=== PATIENT | female | born 1985 | race African-American/Black ===

== ENCOUNTER 2017-01-16 22:10 | Emergency (ER) | payer OTHER ==
[~2017-01-16] VITALS: Ht 167.6 cm; Wt 81.7 kg
[~2017-01-16 22:10] MED LIST: AUGMENTIN 875875 MG PO; NORCO 5-325 TA1 EACH PO
[2017-01-16 22:13] VITALS: BP 152/74
[2017-01-16] MEDS ORDERED: NAPROSYN500 MG PO (22:53)
== END 2017-01-16 22:55 | disposition home or self-care (01) ==
LOC: ER 22:10
DX: M25.462 Effusion, left knee (principal); F12.10 Cannabis abuse, uncomplicated; Z88.6 Allergy status to analgesic agent

== ENCOUNTER 2019-01-31 04:55 | Emergency (ER) | payer OTHER ==
[~2019-01-31] VITALS: Ht 165.1 cm; Wt 77.1 kg
[~2019-01-31 04:55] MED LIST changes: +NAPROSYN500 MG PO
[2019-01-31 05:14] LABS: URINE BILIRUBIN NEGATIVE (Negative); URINE BLOOD 1+ (Negative); URINE CLARITY CLEAR; URINE COLOR YELLOW; URINE GLUCOSE-RANDOM* NEGATIVE (Negative); URINE KETONES NEGATIVE (Negative); URINE LEUKOCYTES-REFLEX NEGATIVE (Negative); URINE NITRITE-REFLEX NEGATIVE (Negative); URINE PROTEIN (DIPSTICK) NEGATIVE (Negative); URINE UROBILINOGEN 0.2 E.U./dl (0.2-1.0)
[2019-01-31 05:26] LABS: BACTERIA-REFLEX None Seen /HPF (None Seen); CASTS None Seen /LPF (None Seen); MUCUS 0-3 Light strn/LPF (None Seen); SQUAMOUS 4-10 Moderate /LPF (0-3); URINE RBC 3-10 Few /HPF (0-2); URINE WBC-REFLEX None Seen /HPF (0-5)
[2019-01-31 05:27] LABS: CRYSTALS None Seen /LPF (None Seen)
[2019-01-31 05:40] LABS: ABSOLUTE NEUTROPHILS 5.6 thou/uL (1.4-8.2); BASOPHILS 1.2 % (0.0-2.0); EOSINOPHILS 2.2 % (0.0-3.0); HEMATOCRIT 34.5 % (37.0-47.0); HEMOGLOBIN 11.2 gm/dL (12.0-15.0); LYMPHOCYTES 37.3 % (24.0-44.0); MCH 26.3 pg (26.0-34.0); MCHC 32.4 g/dL (28.0-37.0); MCV 81.3 fL (80.0-100.0); MONOCYTES 6.8 % (1.0-8.0); PLATELET COUNT 303 thou/uL (150-400); POLYS 52.5 % (36.0-66.0); RBC 4.24 mil/uL (4.20-5.00); RDW 13.8 % (10.5-14.5); WBC 10.6 thou/uL (4.0-11.0)
[2019-01-31 05:49] LABS: CALCIUM 8.7 mg/dL (8.5-10.1); CREATININE 0.9 mg/dL (0.6-1.0); POTASSIUM 4.1 mmol/L (3.5-5.1)
[2019-01-31 05:54] LABS: ALBUMIN 3.6 g/dL (3.4-5.0); TOTAL BILIRUBIN 0.3 mg/dL (<0.1-1.0); TOTAL PROTEIN 7.3 g/dL (6.4-8.2)
[2019-01-31] MEDS ORDERED: METRONIDAZOLE500 M4 PO (07:29)
[2019-01-31 07:33] VITALS: BP 121/74
== END 2019-01-31 07:34 | disposition home or self-care (01) ==
LOC: ER 04:55
PROVIDERS: Emergency Medicine
DX: N76.0 Acute vaginitis (principal); B96.89 Other specified bacterial agents as the cause of diseases classified elsewhere; N93.9 Abnormal uterine and vaginal bleeding, unspecified; R10.30 Lower abdominal pain, unspecified; Z88.6 Allergy status to analgesic agent; Z98.51 Tubal ligation status